=== PATIENT | female | born 1985 | race Two or more races ===

== ENCOUNTER 2017-09-19 06:52 | Inpatient (IN) | payer OTHER ==
[~2017-09-19] VITALS: Ht 144.8 cm; Wt 68.0 kg
[2017-09-19] MEDS ORDERED: OXYTOCIN 30U/ 0.9% NaCL 500ML 500 ML IV SCH (07:32)
[2017-09-19] MEDS ORDERED: LACTATED RINGERS 1,000 ML IV SCH ×2 (07:32→07:45)
[2017-09-19] MEDS ORDERED: NEWBORN KIT ONE ×2 (07:42→08:08)
[2017-09-19] MEDS ORDERED: OXYTOCIN 30U/ 0.9% NaCL 500ML 500 ML ONE (07:42)
[2017-09-19] MEDS ORDERED: SODIUM CITRATE/CITRIC ACID 30 ML UDC ONE (07:42)
[2017-09-19] MEDS ORDERED: METOCLOPRAMIDE 5 MG/ML, 2ML ONE (07:42)
[2017-09-19 07:58] LABS: BASOPHILS # (AUTO) 0.02 x10^3/uL (0-0.1); BASOPHILS % (AUTO) 0 % (0-1); EOSINOPHILS # (AUTO) 0.33 x10^3/uL (0-0.4); EOSINOPHILS % (AUTO) 5 % (1-7); LYMPHOCYTES # (AUTO) 1.56 x10^3/uL (1-3.4); LYMPHOCYTES % (AUTO) 21 % (22-44); MD NO; MEAN CORPUSCULAR HEMOGLOBIN 27.3 pg (27.0-34.8); MEAN CORPUSCULAR VOLUME 82.7 fL (80-100); MEAN PLATELET VOLUME 7.3 fL (7.4-10.4); MONOCYTES % (AUTO) 7 % (2-9); NEUTROPHILS # (AUTO) 4.87 x10^3/uL (1.8-6.8); NEUTROPHILS % (AUTO) 67 % (42-75); PLATELET COUNT 301 x10^3/uL (130-400); RED BLOOD COUNT 4.62 x10^6/uL (3.82-5.3); RED CELL DISTRIBUTION WIDTH 15.5 % (9.6-15.2)
[2017-09-19] MEDS ORDERED: METOCLOPRAMIDE 5 MG/ML, 2ML IV ONE (08:00)
[2017-09-19] MEDS ORDERED: SODIUM CITRATE/CITRIC ACID 30 ML UDC PO ONE (08:00)
[2017-09-19] MEDS ORDERED: LACTATED RINGERS 1,000 ML IVBOLUS ONE (08:00)
[2017-09-19 08:40] VITALS: BP 117/71
[2017-09-19] MEDS ORDERED: FENTANYL PF 100 MCG/2ML ONE (09:25)
[2017-09-19] MEDS ORDERED: DEXAMETHASONE 4 MG/ML, 1ML ONE (09:25)
[2017-09-19] MEDS ORDERED: KETOROLAC 30 MG/1 ML ONE (09:25)
[2017-09-19] MEDS ORDERED: ONDANSETRON 2MG/ML, 2ML ONE (09:25)
[2017-09-19] MEDS ORDERED: PHENYLEPHRINE 10 MG/ML ONE (09:25)
[2017-09-19] MEDS ORDERED: EPHEDRINE 50 MG/ML, 1ML ONE (09:25)
[2017-09-19] MEDS ORDERED: CEFAZOLIN 1,000 MG ONE (09:25)
[2017-09-19] MEDS ORDERED: OXYTOCIN 10 UNITS/ML, 1ML ONE (09:25)
[2017-09-19] MEDS ORDERED: hydrALAzine 20 MG/ML, 1ML IV PRN (09:30)
[2017-09-19] MEDS ORDERED: MIDAZOLAM 1 MG/ML, 2ML IV PRN (09:30)
[2017-09-19] MEDS ORDERED: LABETALOL 5MG/ML, 20ML IV PRN (09:30)
[2017-09-19] MEDS ORDERED: PROMETHAZINE 25 MG/ML, 1ML IV PRN (09:30)
[2017-09-19] MEDS ORDERED: EPHEDRINE 50 MG/ML, 1ML IVPush PRN (09:30)
[2017-09-19] MEDS ORDERED: ONDANSETRON 2MG/ML, 2ML IVPush PRN (09:30)
[2017-09-19] MEDS ORDERED: HYDROcodone/APAP 7.5-325MG/15ML UDC PO PRN (09:30)
[2017-09-19] MEDS ORDERED: FENTANYL PF 100 MCG/2ML IV PRN (09:30)
[2017-09-19] MEDS ORDERED: OXYcodone 5 MG/5 ML ORAL.SOL UDC PO PRN (09:30)
[2017-09-19] MEDS ORDERED: MEPERIDINE/PF 25MG/0.5ML IVPush PRN (09:30)
[2017-09-19] MEDS ORDERED: ALBUTEROL SULFATE 2.5 MG/3 ML NPPB PRN (09:30)
[2017-09-19] MEDS ORDERED: HYDROmorphone 1 MG/ML, 1ML IV PRN (09:30)
[2017-09-19] MEDS ORDERED: PROPOFOL 10 MG/ML, 20ML ONE (09:34)
[2017-09-19] MEDS: OXYTOCIN 30U/ 0.9% NaCL 500ML 500 ML IV SCH ×2 (09:40→19:40)
[2017-09-19] MEDS: LACTATED RINGERS 1,000 ML IV SCH ×4 (09:40→19:40)
[2017-09-19] MEDS ORDERED: MISOPROSTOL 200 MCG TABLET PR PRN (10:00)
[2017-09-19] MEDS ORDERED: ACETAMINOPHEN 325 MG TABLET PO PRN (10:00)
[2017-09-19] MEDS ORDERED: OXYcodone/APAP 5/325MG TABLET PO PRN (10:00)
[2017-09-19] MEDS ORDERED: morphine SULFATE 10 MG/ML, 1ML IVPush PRN (10:00)
[2017-09-19] MEDS: KETOROLAC 30 MG/1 ML IV SCH ×3 (10:00→22:13)
[2017-09-19] MEDS ORDERED: ONDANSETRON 2MG/ML, 2ML IV PRN (10:00)
[2017-09-19] MEDS ORDERED: MIDAZOLAM 1 MG/ML, 2ML ONE (10:23)
[2017-09-19] MEDS ORDERED: OXYcodone 5 MG/5 ML ORAL.SOL UDC ONE (11:08)
[2017-09-19] MEDS ORDERED: MISOPROSTOL 200 MCG TABLET ONE (11:39)
[2017-09-19 12:35] VITALS: BP 112/65
[2017-09-19] MEDS ORDERED: METHYLERGONOVINE 0.2 MG/ML IM ONE ×3 (13:54→14:00)
[2017-09-19 15:50] VITALS: BP 114/73
[2017-09-19] MEDS: OXYcodone IR 5MG TABLET PO PRN ×2 (15:51→21:03)
[2017-09-19 18:23] LABS: MEAN CORPUSCULAR HEMOGLOBIN 27.2 pg (27.0-34.8); MEAN CORPUSCULAR HGB CONC 33.1 g/dL (32.4-35.8); MEAN CORPUSCULAR VOLUME 82.3 fL (80-100); MEAN PLATELET VOLUME 7.8 fL (7.4-10.4); PLATELET COUNT 281 x10^3/uL (130-400); RED BLOOD COUNT 3.78 x10^6/uL (3.82-5.3); RED CELL DISTRIBUTION WIDTH 15.4 % (9.6-15.2)
[2017-09-19 18:49] LABS: BASOPHILS # (AUTO) 0.02 x10^3/uL (0-0.1); BASOPHILS % (AUTO) 0 % (0-1); EOSINOPHILS % (AUTO) 0 % (1-7); LYMPHOCYTES # (AUTO) 0.85 x10^3/uL (1-3.4); LYMPHOCYTES % (AUTO) 9 % (22-44); MD SCAN; MONOCYTES # (AUTO) 0.22 x10^3/uL (0.2-0.8); MONOCYTES % (AUTO) 2 % (2-9); NEUTROPHILS # (AUTO) 8.72 x10^3/uL (1.8-6.8); NEUTROPHILS % (AUTO) 89 % (42-75)
[2017-09-19 19:45] VITALS: BP 110/68
[2017-09-20 00:20] VITALS: BP 89/48
[2017-09-20] MEDS: LACTATED RINGERS 1,000 ML IV SCH ×5 (01:40→17:40)
[2017-09-20 04:40] VITALS: BP 94/49
[2017-09-20] MEDS: KETOROLAC 30 MG/1 ML IV SCH ×4 (04:40→22:09)
[2017-09-20] MEDS: OXYcodone IR 5MG TABLET PO PRN ×3 (04:41→20:03)
[2017-09-20] MEDS: OXYTOCIN 30U/ 0.9% NaCL 500ML 500 ML IV SCH ×2 (05:40→15:40)
[2017-09-20 08:00] VITALS: BP 93/56
[2017-09-20] MEDS: PRENATAL VIT/IRON/FA 1 EACH TABLET PO SCH (09:00)
[2017-09-20] MEDS: DOCUSATE 100 MG CAPSULE PO PRN (20:03)
[2017-09-20 20:40] VITALS: BP 88/47
[2017-09-21] MEDS: LACTATED RINGERS 1,000 ML IV SCH ×2 (01:40)
[2017-09-21] MEDS: OXYTOCIN 30U/ 0.9% NaCL 500ML 500 ML IV SCH (01:40)
[2017-09-21] MEDS: OXYcodone IR 5MG TABLET PO PRN ×3 (04:02→19:43)
[2017-09-21] MEDS: KETOROLAC 30 MG/1 ML IV SCH (04:02)
[2017-09-21 06:50] VITALS: BP 92/58
[2017-09-21] MEDS: PRENATAL VIT/IRON/FA 1 EACH TABLET PO SCH (08:26)
[2017-09-21] MEDS: DOCUSATE 100 MG CAPSULE PO PRN ×2 (08:26→19:43)
[2017-09-21] MEDS: IBUPROFEN 600 MG TABLET PO PRN ×2 (09:25→19:43)
[2017-09-21 19:35] VITALS: BP 97/58
[2017-09-22] MEDS: IBUPROFEN 600 MG TABLET PO PRN ×2 (02:22→09:58)
[2017-09-22] MEDS: OXYcodone IR 5MG TABLET PO PRN ×2 (02:22→09:58)
[2017-09-22 07:00] VITALS: BP 119/79
[2017-09-22] MEDS: PRENATAL VIT/IRON/FA 1 EACH TABLET PO SCH (09:58)
[2017-09-22] MEDS: DOCUSATE 100 MG CAPSULE PO PRN (09:58)
[2017-09-22] MEDS ORDERED: IBUP-1222 PO (12:14)
[2017-09-22] MEDS ORDERED: OXYC-302 PO (12:14)
== END 2017-09-22 13:26 | disposition home or self-care (01) | DRG 766 ==
LOC: LDIP 06:52 → 2NW 13:05
PROVIDERS: ADMIT Obstetrics & Gynecology; ATTEND Obstetrics & Gynecology
PROC: 0UB70ZZ Excision of Bilateral Fallopian Tubes, Open Approach (ICD-10-PCS; principal; 2017-09-19)
PROC: 10D00Z1 Extraction of Products of Conception, Low, Open Approach (ICD-10-PCS; 2017-09-19)
DX: O24.420 Gestational diabetes mellitus in childbirth, diet controlled (principal); O34.211 Maternal care for low transverse scar from previous cesarean delivery; Z37.0 Single live birth; Z30.2 Encounter for sterilization; Z3A.39 39 weeks gestation of pregnancy
CPT/HCPCS: 36415; 85014; 85018; 85025; 86850; 86900; 88302; J0690; J1100; J1885; J2250; J2405; J2704; J3010; J2210; J2270; J2370; J2590; J2765; J7120